=== PATIENT | female | born 2000 | race Caucasian/White ===

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

== ENCOUNTER 2019-07-09 18:29 | Emergency (ER) | payer MEDICAID ==
[~2019-07-09] VITALS: Ht 162.6 cm; Wt 87.5 kg
[2019-07-09 19:25] VITALS: Ht 162.6 cm; Wt 87.5 kg
[2019-07-09 20:45] VITALS: BP 130/71
== END 2019-07-09 20:45 | disposition home or self-care (01) ==
LOC: ED 18:29
DX: K64.4 Residual hemorrhoidal skin tags (principal)

== ENCOUNTER 2019-09-07 23:58 | Emergency (ER) | payer MEDICAID ==
[~2019-09-07] VITALS: Ht 162.6 cm; Wt 84.8 kg
[2019-09-08 00:01] VITALS: Ht 162.6 cm; Wt 84.8 kg
[2019-09-08 01:01] LABS: BASOPHIL % 0.1 % (0-2); PLATELET COUNT 304 x10^3mcL (130-400); RED CELL DISTRIBUTION WIDTH 13.6 % (11.5-14.5)
[2019-09-08 01:04] LABS: CALCIUM 9.5 mg/dL (8.5-10.1); CARBON DIOXIDE 22.7 mmol/L (21-32); CHLORIDE SERUM 102 mmol/L (98-107); CREATININE SERUM 0.8 mg/dL (0.6-1.0); GFR1 > 60 mL/min; GLUCOSE SERUM 146 mg/dL (74-106); POTASSIUM SERUM 3.1 mmol/L (3.5-5.1); SODIUM SERUM 138 mmol/L (136-145)
[2019-09-08 01:11] LABS: ALBUMIN 4.3 g/dL (3.4-5.0); ALKALINE PHOSPHATASE 103 U/L (46-116); ALT/SGPT 22 U/L (14-59); AST/SGOT 17 U/L (15-37); BILIRUBIN TOTAL 0.42 mg/dL (0.20-1.00); LIPASE 151 IU/L (73-393)
[2019-09-08 04:06] VITALS: BP 115/54
== END 2019-09-08 04:06 | disposition home or self-care (01) ==
LOC: ED 23:58
PROVIDERS: Emergency Medicine
DX: R05 Cough (principal); R11.10 Vomiting, unspecified; R68.83 Chills (without fever); M79.10 Myalgia, unspecified site; R10.84 Generalized abdominal pain; H92.03 Otalgia, bilateral; D72.829 Elevated white blood cell count, unspecified
CPT/HCPCS: 87804; J1885; J2405; J7030; Q0092